=== PATIENT | female | born 1990 | race Caucasian/White ===

== ENCOUNTER 2019-12-17 07:08 | Inpatient (IN) | payer MEDICAID ==
[~2019-12-17 07:08] MED LIST: Lidocaine 1.5% with EPINEPHrine 1:200,000 5 ML Amp ONE
[2019-12-17] MEDS ORDERED: Acetaminophen 325 MG Tab PO PRN ×2 (08:13→20:41)
[2019-12-17] MEDS ORDERED: Nalbuphine 10 MG/ML Syringe IVPUSH PRN (08:13)
[2019-12-17] MEDS ORDERED: Sodium Chloride 0.9% 10 ML Syringe FLUSH PRN (08:13)
[2019-12-17] MEDS ORDERED: Ondansetron 4 MG/2 ML SDV IVPUSH PRN (08:13)
[2019-12-17] MEDS ORDERED: Oxytocin/Lactated Ringers 10 UNIT/1,000 ML BAG IV SCH ×2 (08:15→19:00)
--- NOTE | 2019-12-17 08:15 | PCM.LDHP ---
L&D History of Present Illness - General Date of Service: 12/17/19 Admit Problem/Dx: Patient Status Order with Admit Dx/Problem 12/17/19 07:21 Patient Status [ADT] Routine Admission Diagnosis/Problem Admission Diagnosis/Problem Term Source of Information: Patient History Limitations: Reports: No Limitations - History of Present Illness Introduction:: Patient is a 29 y/o at 38 1/7 wks who presents for concerns of contractions/labor. Started early this AM. 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 (Approximate): Hematologic History: Reports: Blood Transfusion(s) (2014 - hemorrhage requiring transfusion) - Past Surgical History HEENT Surgical History: Reports: Oral Surgery (tooth extraction) Social & Family History - Tobacco Use Smoking Status *Q: Current Every Day Smoker - Alcohol Use Alcohol Use History: No - Recreational Drug Use Recreational Drug Use: No H&P Review of Systems - Review of Systems: Review Of Systems: See Below General: Reports: No Symptoms Pulmonary: Reports: No Symptoms Cardiovascular: Reports: No Symptoms Gastrointestinal: Reports: Abdominal Pain Genitourinary: Reports: No Symptoms Musculoskeletal: Reports: Back Pain Skin: Reports: No Symptoms Psychiatric: Reports: No Symptoms Neurological: Reports: No Symptoms L&D Exam - Exam Exam: See Below - OB Specific Contraction Intensity: Moderate Movement: Active Heart Tones: Present Heart Tones per Min: 140 Heart Rate (FHR) Variability: Moderate (6-25 bmp) Presentation: Vertex - Araiza Score Araiza Score Cervix Position: Midposition Araiza Score Consistency: Soft Araiza Score Effacement: 51-70% Araiza Score Dilation: 3-4 cm Araiza Score 's Station: -2 Araiza Score Total: 8 - Exam General: Alert, Oriented, Cooperative Lungs: Clear to Auscultation, Normal Respiratory Effort Cardiovascular: Regular Rate, Regular Rhythm GI/Abdominal Exam: Soft, Non-Tender Genitourinary: Normal external exam Extremities: Normal Inspection Skin: Warm, Dry, Intact - Problem List (1) 38 weeks gestation of SNOMED Code(s): 41788052 ICD Code: Z3A.38 - 38 WEEKS GESTATION OF Status: Acute Current Visit: Yes (2) GBS (group B Streptococcus carrier), +RV culture, currently SNOMED Code(s): 1209791269417, 829015443, 7950125730680 ICD Code: O99.820 - STREPTOCOCCUS B CARRIER STATE COMPLICATING Status: Acute Current Visit: Yes (3) Insufficient care SNOMED Code(s): 5671659615755 ICD Code: O09.30 - SUPRVSN OF PREG W INSUFFICIENT ANTENAT CARE, UNSP TRIMESTER Status: Acute Current Visit: Yes Qualifiers: Trimester: third trimester Qualified Code(s): O09.33 - Supervision of with insufficient care, third trimester Problem List Initiated/Reviewed/Updated: Yes Orders Last 24hrs: Active Orders 24 hr Category Date Time Status Patient Status [ADT] Routine ADT 12/17/19 07:21 Active Activity as Tolerated [RC] PFP Care 12/17/19 08:14 Ordered Communication Order [RC] ASDIRECTED Care 12/17/19 08:14 Ordered Heart Tones [RC] ASDIRECTED Care 12/17/19 08:14 Ordered Non Stress Test [RC] PER UNIT ROUTINE Care 12/17/19 07:21 Active Non Stress Test [RC] PER UNIT ROUTINE Care 12/17/19 08:14 Ordered Notify Provider [RC] PRN Care 12/17/19 08:14 Ordered Peripheral IV Care [RC] . DIRECTED Care 12/17/19 08:14 Ordered Vital Signs [RC] PER UNIT ROUTINE Care 12/17/19 07:21 Active Vital Signs [RC] PER UNIT ROUTINE Care 12/17/19 08:14 Ordered Regular Diet [DIET] Diet 12/17/19 Breakfast Active Regular Diet [DIET] Diet 12/17/19 Breakfast Ordered CBC W/O DIFF,HEMOGRAM [HEME] Routine Lab 12/17/19 08:13 Ordered DRUG SCREEN, URINE [URCHEM] Stat Lab 12/17/19 07:21 Ordered RAPID PLASMA REAGIN,RPR [CHEM] Routine Lab 12/17/19 08:14 Ordered TYPE AND SCREEN [BBK] Routine Lab 12/17/19 08:13 Ordered UA W/MICROSCOPIC [URIN] Stat Lab 12/17/19 07:21 Ordered Acetaminophen [Tylenol] Med 12/17/19 08:13 Ordered 650 mg PO Q4H PRN Lactated Ringers [Ringers, Lactated] 1,000 ml Med 12/17/19 08:15 Ordered IV ASDIRECTED Nalbuphine [Nubain] Med 12/17/19 08:13 Ordered 10 mg IVPUSH Q2H PRN Ondansetron [Zofran] Med 12/17/19 08:13 Ordered 4 mg IVPUSH Q4H PRN Oxytocin/Lactated Ringers [Pitocin in LR 10 Units/1,000 Med 12/17/19 08:15 Ordered ML] 10 unit in 1,000 ml IV .CONTINUOUS Sodium Chloride 0.9% [Saline Flush] Med 12/17/19 08:13 Ordered 10 ml FLUSH ASDIRECTED PRN ceFAZolin [Ancef] 1 gm Med 12/17/19 14:00 Ordered Premix Bag 1 bag IV Q8HR ceFAZolin [Ancef] 2 gm Med 12/17/19 08:13 Ordered Premix Bag 1 bag IV ONETIME Electronic Heart Tones Ext w TOCO [WOMSER] Oth 12/17/19 08:14 Ordered Routine Electronic Heart Tones Internal [WOMSER] Per Unit Oth 12/17/19 08:14 Ordered Routine Peripheral IV Insertion Adult [OM.PC] Routine Oth 12/17/19 08:14 Ordered Resuscitation Status Routine Resus Stat 12/17/19 07:21 Ordered Assessment/Plan Comment:: * Labs * GBS positive, Ancef in labor * pain control per patient preference * Anticipate
[2019-12-17] MEDS ORDERED: ceFAZolin 2 GM in Premix Bag 1 BAG IV ONE (09:00)
[2019-12-17] MEDS: Lactated Ringers 1,000 ML IV SCH ×2 (09:12→11:40)
[2019-12-17] MEDS ORDERED: ePHEDrine 50 MG/ML SDV IVPUSH PRN (09:41)
[2019-12-17] MEDS ORDERED: fentaNYL 100 MCG/2 ML SDV EPIDUR PRN (09:41)
[2019-12-17] MEDS ORDERED: Bupivacaine/fentaNYL/NS 100 ML Bag EPIDUR PRN (09:41)
[2019-12-17] MEDS ORDERED: diphenhydrAMINE 50 MG/ML SDV IVPUSH PRN (09:41)
--- NOTE | 2019-12-17 09:41 | PCM.SN ---
- Free Text/Narrative Note: Called for IV placement. 20 gauge IV inserted in the right upper arm with one attempt per standard aseptic technique. Good blood return, flushes well, secured with transparent dressing and tape.
--- NOTE | 2019-12-17 09:43 | PCM.PREANE ---
Preanesthetic Assessment - Procedure Proposed Procedure: Epidural - Anesthesia/Transfusion/Family Hx Anesthesia History: No Prior Anesthesia Type of Anesthesia Reaction: Excessive Nausea/Vomiting Family History of Anesthesia Reaction: No - Review of Systems General: No Symptoms Pulmonary: Other (Smoker a couple a day. ) Cardiovascular: No Symptoms Gastrointestinal: No Symptoms, Other Neurological: No Symptoms Other: Reports: None - Physical Assessment ASA Class: 2 Mental Status: Alert & Oriented x3 Airway Class: Mallampati = 2 Dentition: Reports: Caries ROM/Head Extension: Full Lungs: Clear to Auscultation, Normal Respiratory Effort Cardiovascular: Regular Rate, Regular Rhythm - Lab Values: Laboratory Last Values WBC 12.30 K/mm3 (3.98-10.04) H 12/17/19 08:51 RBC 3.77 M/mm3 (3.98-5.22) L 12/17/19 08:51 Hgb 9.8 gm/dl (11.2-15.7) L 12/17/19 08:51 Hct 31.7 % (34.1-44.9) L 12/17/19 08:51 MCV 84.1 fl (79.4-94.8) 12/17/19 08:51 MCH 26.0 pg (25.6-32.2) 12/17/19 08:51 MCHC 30.9 g/dl (32.2-35.5) L 12/17/19 08:51 RDW Std Deviation 46.6 fL (36.4-46.3) H 12/17/19 08:51 Plt Count 258 K/mm3 (182-369) 12/17/19 08:51 MPV 11.7 fl (9.4-12.3) 12/17/19 08:51 - Allergies Allergies/Adverse Reactions: Allergies Allergy/AdvReac Type Severity Reaction Status Date / Time amoxicillin Allergy Itching Verified 12/17/19 08:58 - Acknowledgements Anesthesia Type Planned: Epidural Pt an Appropriate Candidate for the Planned Anesthesia: Yes Alternatives and Risks of Anesthesia Discussed w Pt/Guardian: Yes Pt/Guardian Understands and Agrees with Anesthesia Plan: Yes 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: Hematologic History: Reports: Blood Transfusion(s) (2014 - hemorrhage requiring transfusion) - Past Surgical History HEENT Surgical History: Reports: Oral Surgery (tooth extraction) - SUBSTANCE USE Smoking Status *Q: Current Every Day Smoker Recreational Drug Use History: No - CURRENT (IN HOUSE) MEDS Current Meds: Current Medications Acetaminophen (Tylenol) 650 mg PO Q4H PRN PRN Reason: Pain (Mild 1-3) and fever Diphenhydramine HCl (Benadryl) 25 mg IVPUSH Q6H PRN PRN Reason: pruritis Ephedrine Sulfate (Ephedrine Sulfate) 5 mg IVPUSH ASDIRECTED PRN PRN Reason: Hypotension Fentanyl (Sublimaze) 100 mcg EPIDUR Q3H PRN PRN Reason: Pain Fentanyl/Bupivacaine HCl (Fentanyl/Bupivacaine/Ns 2 Mcg-0.125% 100 Ml) 100 ml EPIDUR ASDIRECTED PRN PRN Reason: Pain Lactated Ringer's (Ringers, Lactated) 1,000 mls @ 100 mls/hr IV ASDIRECTED KAYLA Last Admin: 12/17/19 09:12 Dose: 100 mls/hr Oxytocin/Lactated Ringer's (Pitocin In Lr 10 Units/1,000 Ml) 10 unit in 1,000 mls @ 500 mls/hr IV .CONTINUOUS KAYLA Cefazolin Sodium/Dextrose 1 gm (/ Premix) 50 mls @ 100 mls/hr IV Q8H KAYLA Nalbuphine HCl (Nubain) 10 mg IVPUSH Q2H PRN PRN Reason: Pain Ondansetron HCl (Zofran) 4 mg IVPUSH Q4H PRN PRN Reason: Nausea/Vomiting Sodium Chloride (Saline Flush) 10 ml FLUSH ASDIRECTED PRN PRN Reason: Keep Vein Open Discontinued Medications Cefazolin Sodium/Dextrose 2 gm (/ Premix) 50 mls @ 100 mls/hr IV ONETIME ONE Stop: 12/17/19 09:29 Last Admin: 12/17/19 09:14 Dose: 100 mls/hr
--- NOTE | 2019-12-17 12:22 | PCM.PNLD ---
Labor Progress Note - VS & Meds Active Medications: Current Medications Acetaminophen (Tylenol) 650 mg PO Q4H PRN PRN Reason: Pain (Mild 1-3) and fever Diphenhydramine HCl (Benadryl) 25 mg IVPUSH Q6H PRN PRN Reason: pruritis Ephedrine Sulfate (Ephedrine Sulfate) 5 mg IVPUSH ASDIRECTED PRN PRN Reason: Hypotension Fentanyl (Sublimaze) 100 mcg EPIDUR Q3H PRN PRN Reason: Pain Last Admin: 12/17/19 11:39 Dose: 100 mcg Fentanyl/Bupivacaine HCl (Fentanyl/Bupivacaine/Ns 2 Mcg-0.125% 100 Ml) 100 ml EPIDUR ASDIRECTED PRN PRN Reason: Pain Last Admin: 12/17/19 11:39 Dose: 100 ml Lactated Ringer's (Ringers, Lactated) 1,000 mls @ 100 mls/hr IV ASDIRECTED KAYLA Last Admin: 12/17/19 11:40 Dose: 100 mls/hr Oxytocin/Lactated Ringer's (Pitocin In Lr 10 Units/1,000 Ml) 10 unit in 1,000 mls @ 500 mls/hr IV .CONTINUOUS KAYLA Cefazolin Sodium/Dextrose 1 gm (/ Premix) 50 mls @ 100 mls/hr IV Q8H KAYLA Nalbuphine HCl (Nubain) 10 mg IVPUSH Q2H PRN PRN Reason: Pain Ondansetron HCl (Zofran) 4 mg IVPUSH Q4H PRN PRN Reason: Nausea/Vomiting Sodium Chloride (Saline Flush) 10 ml FLUSH ASDIRECTED PRN PRN Reason: Keep Vein Open Discontinued Medications Cefazolin Sodium/Dextrose 2 gm (/ Premix) 50 mls @ 100 mls/hr IV ONETIME ONE Stop: 12/17/19 09:29 Last Admin: 12/17/19 09:14 Dose: 100 mls/hr - Uterine Contractions Uterine Monitoring Mode: External Boykin Contraction Intensity: Moderate Uterine Resting Tone: Soft - Monitoring Monitor Mode: External Ultrasound Heart Rate (FHR) Baseline: 135 Heart Rate (FHR) Variability: Moderate (6-25 bmp) Accelerations: Present, 15x15 Decelerations: None Strip Review: Category I - Vaginal Exam Dilation (cm): 4 Effacement (Percent): 50 Station: -2 Cervical Position: Midposition - Labor Progress (Free Text) Labor Progress: Doing well. Comfortable with epidural in place. AROM done with release of scant amount of meconium stained fluid
[2019-12-17] MEDS ORDERED: ceFAZolin 1 GM in Premix Bag 1 BAG IV SCH (17:00)
--- NOTE | 2019-12-17 20:03 | PCM.DEL ---
L & D Note - General Info Date of Service: 12/17/19 - Delivery Note Labor: Augmented by ARM Delivery Outcome: Livebirth Delivery Method: Spontaneous Vaginal Delivery-Single Infant Delivery Mode: Spontaneous Presentation: Right Occiput Anterior (LIGIA) Nuchal Cord: None Anesthesia Type: Epidural Amniotic Fluid Description: Meconium Stained Episiotomy Type: None Laceration: None Placenta: Intact, Spontaneous Cord: 3 Vessels Estimated Blood Loss: 200 Resuscitation Needed: Yes Vestal: Bulb Syringe, Stimulated, Warmed, [place] Used, Warmer Used Delivery Comments (Free Text/Narrative):: Patient found to be complete and began pushing. With maternal pushing effort head delivered from LIGIA presentation. No nuchal cord present. With gentle downward traction shoulders and body delivered. placed on maternal abdomen . Cord clamped and cut with long segment remaining on baby to allow collection of cord segment by RN team. Cord blood collected. Placenta allowed time to separate and expelled intact. Inspection of the perineum showed no lacerations - General Info Date of Service: 12/17/19 - Patient Data Vitals - Most Recent: Last Vital Signs Temp 36.9 C 12/17/19 07:45 Pulse 111 H 12/17/19 07:45 Resp 16 12/17/19 07:45 BP 128/67 12/17/19 07:45 Pulse Ox Weight - Most Recent: 72.121 kg I&O - Last 24 Hours: Intake & Output 12/17/19 12/17/19 12/17/19 06:59 14:59 22:59 Intake Total 2180 Balance 2180 Lab Results Last 24 Hours: Laboratory Results - last 24 hr 12/17/19 12/17/19 12/17/19 Range/Units 08:51 08:51 08:51 WBC 12.30 H (3.98-10.04) K/mm3 RBC 3.77 L (3.98-5.22) M/mm3 Hgb 9.8 L (11.2-15.7) gm/dl Hct 31.7 L (34.1-44.9) % MCV 84.1 (79.4-94.8) fl MCH 26.0 (25.6-32.2) pg MCHC 30.9 L (32.2-35.5) g/dl RDW Std Deviation 46.6 H (36.4-46.3) fL Plt Count 258 (182-369) K/mm3 MPV 11.7 (9.4-12.3) fl Urine Color (Yellow) Urine Appearance (Clear) Urine pH (5.0-8.0) Ur Specific Pinch (1.005-1.030) Urine Protein (Negative) Urine Glucose (UA) (Negative) Urine Ketones (Negative) Urine Occult Blood (Negative) Urine Nitrite (Negative) Urine Bilirubin (Negative) Urine Urobilinogen (0.2-1.0) Ur Leukocyte Esterase (Negative) Urine RBC (0-5) /hpf Urine WBC (0-5) /hpf Ur Squamous Epith Cells (0-5) /hpf Urine Bacteria (FEW) /hpf Urine Mucus (FEW) /hpf Urine Opiates Screen (DWQCPF=992) Ur Buprenorphine Scrn (CUTOFF=10) Ur Oxycodone Screen (GBI0KY=777) Urine Methadone Screen (CEGOFO=534) Ur Propoxyphene Screen (DLJLMK=356) Ur Barbiturates Screen (ABFIQJ=973) Ur Tricyclics Screen (YRWIKI=294) Ur Phencyclidine Scrn (CUTOFF=25) Ur Amphetamine Screen (XVGUUE=312) U Methamphetamines Scrn (JHCVFM=016) U Benzodiazepines Scrn (JWYYKP=820) U Cocaine Metab Screen (SZDKDK=211) U Marijuana (THC) Screen (CUTOFF=50) RPR Non-reactive (NONREACTIVE) Blood Type A POSITIVE Gel Antibody Screen Negative 12/17/19 12/17/19 Range/Units 09:00 09:00 WBC (3.98-10.04) K/mm3 RBC (3.98-5.22) M/mm3 Hgb (11.2-15.7) gm/dl Hct (34.1-44.9) % MCV (79.4-94.8) fl MCH (25.6-32.2) pg MCHC (32.2-35.5) g/dl RDW Std Deviation (36.4-46.3) fL Plt Count (182-369) K/mm3 MPV (9.4-12.3) fl Urine Color Yellow (Yellow) Urine Appearance Clear (Clear) Urine pH 6.5 (5.0-8.0) Ur Specific Pinch > or = 1.030 (1.005-1.030) Urine Protein 1+ H (Negative) Urine Glucose (UA) Negative (Negative) Urine Ketones Negative (Negative) Urine Occult Blood Negative (Negative) Urine Nitrite Negative (Negative) Urine Bilirubin Negative (Negative) Urine Urobilinogen 1.0 (0.2-1.0) Ur Leukocyte Esterase Negative (Negative) Urine RBC 0-5 (0-5) /hpf Urine WBC 0-5 (0-5) /hpf Ur Squamous Epith Cells 10-20 H (0-5) /hpf Urine Bacteria Few (FEW) /hpf Urine Mucus Few (FEW) /hpf Urine Opiates Screen Negative (AXLOGX=555) Ur Buprenorphine Scrn Negative (CUTOFF=10) Ur Oxycodone Screen Negative (PLP6RO=021) Urine Methadone Screen Negative (AMNWOD=575) Ur Propoxyphene Screen Negative (GUFRVC=741) Ur Barbiturates Screen Negative (GATJLI=388) Ur Tricyclics Screen Negative (QBQBCI=944) Ur Phencyclidine Scrn Negative (CUTOFF=25) Ur Amphetamine Screen Negative (FMYUYY=919) U Methamphetamines Scrn Presumptive positive H (OXRQNR=376) U Benzodiazepines Scrn Negative (SXSSPN=904) U Cocaine Metab Screen Negative (UGBAPT=179) U Marijuana (THC) Screen Negative (CUTOFF=50) RPR (NONREACTIVE) Blood Type Gel Antibody Screen - Problem List & Annotations (1) 38 weeks gestation of SNOMED Code(s): 62595552 Code(s): Z3A.38 - 38 WEEKS GESTATION OF Status: Acute Current Visit: Yes (2) GBS (group B Streptococcus carrier), +RV culture, currently SNOMED Code(s): 6736598017609, 937254397, 1610278820254 Code(s): O99.820 - STREPTOCOCCUS B CARRIER STATE COMPLICATING Status: Acute Current Visit: Yes (3) Insufficient care SNOMED Code(s): 6339053109682 Code(s): O09.30 - SUPRVSN OF PREG W INSUFFICIENT ANTENAT CARE, UNSP TRIMESTER Status: Acute Current Visit: Yes Qualifiers: Trimester: third trimester Qualified Code(s): O09.33 - Supervision of with insufficient care, third trimester (4) Vaginal delivery SNOMED Code(s): 174024311 Code(s): O80 - ENCOUNTER FOR FULL-TERM UNCOMPLICATED DELIVERY Status: Acute Current Visit: Yes - Problem List Review Problem List Initiated/Reviewed/Updated: Yes - My Orders Last 24 Hours: My Active Orders 12/17/19 07:21 Vital Signs [RC] PER UNIT ROUTINE Resuscitation Status Routine 12/17/19 08:13 Acetaminophen [Tylenol] 650 mg PO Q4H PRN Nalbuphine [Nubain] 10 mg IVPUSH Q2H PRN Ondansetron [Zofran] 4 mg IVPUSH Q4H PRN Sodium Chloride 0.9% [Saline Flush] 10 ml FLUSH ASDIRECTED PRN 12/17/19 08:14 Activity as Tolerated [RC] PFP Communication Order [RC] ASDIRECTED Heart Tones [RC] ASDIRECTED Non Stress Test [RC] PER UNIT ROUTINE Notify Provider [RC] PRN Peripheral IV Care [RC] . DIRECTED Electronic Heart Tones Ext w TOCO [WOMSER] Routine Electronic Heart Tones Internal [WOMSER] Per Unit Routine Peripheral IV Insertion Adult [OM.PC] Routine 12/17/19 08:15 Lactated Ringers [Ringers, Lactated] 1,000 ml IV ASDIRECTED Oxytocin/Lactated Ringers [Pitocin in LR 10 Units/1,000 ML] 10 unit in 1,000 ml IV .CONTINUOUS 12/17/19 09:00 AMPHET/METH EXT CONF (GCMS) Routine 12/17/19 10:10 Admission Status [Patient Status] [ADT] Routine 12/17/19 17:00 ceFAZolin [Ancef] 1 gm Premix Bag 1 bag IV Q8H 12/17/19 19:00 Oxytocin/Lactated Ringers [Pitocin in LR 10 Units/1,000 ML] 10 unit in 1,000 ml IV TITRATE 12/17/19 Breakfast Regular Diet [DIET] Regular Diet [DIET] - Assessment Assessment:: PPD#0 - Plan Plan:: * Routine cares * Breast/bottle feeding * Discharge home in 1 day
[2019-12-17] MEDS ORDERED: Witch Hazel Medicated Pads 40/Jar TOP PRN (20:41)
[2019-12-17] MEDS ORDERED: Benzocaine/Menthol 20%-0.5% Spray 56 GM Canister TOP PRN (20:41)
[2019-12-17] MEDS ORDERED: Docusate Sodium 100 MG Cap PO PRN (20:41)
[2019-12-17] MEDS: Ibuprofen 600 MG Tab PO PRN (21:42)
[2019-12-18] MEDS: Ibuprofen 600 MG Tab PO PRN ×3 (05:06→17:09)
--- NOTE | 2019-12-18 07:10 | PCM.DCSUM1 ---
Discharge Summary - Discharge Data Discharge Date: 12/18/19 Discharge Disposition: Home, Self-Care 01 Condition: Good - Referral to Home Health Primary Care Physician: Amairani Flor MD - Discharge Diagnosis/Problem(s) (1) 38 weeks gestation of SNOMED Code(s): 65868744 ICD Code: Z3A.38 - 38 WEEKS GESTATION OF Status: Acute Current Visit: Yes (2) GBS (group B Streptococcus carrier), +RV culture, currently SNOMED Code(s): 9704132477753, 700091929, 6464001634647 ICD Code: O99.820 - STREPTOCOCCUS B CARRIER STATE COMPLICATING Status: Acute Current Visit: Yes (3) Insufficient care SNOMED Code(s): 2501904250698 ICD Code: O09.30 - SUPRVSN OF PREG W INSUFFICIENT ANTENAT CARE, UNSP TRIMESTER Status: Acute Current Visit: Yes Qualifiers: Trimester: third trimester Qualified Code(s): O09.33 - Supervision of with insufficient care, third trimester (4) Vaginal delivery SNOMED Code(s): 842634397 ICD Code: O80 - ENCOUNTER FOR FULL-TERM UNCOMPLICATED DELIVERY Status: Acute Current Visit: Yes - Patient Summary/Data Complications: None Consults: None Recommended Follow-up Testing/Procedures: Follow up in 3 weeks for check Hospital Course: 29 y/o at 38 1/7 wks who presented in labor. Progressed well. Underwent an uncomplicated . See delivery note. was discharged home on PPD#1 - Patient Instructions Diet: Regular Diet as Tolerated Activity: As Tolerated Activity, Other: Pelvic rest for 6 weeks Driving: May Drive Today Showering/Bathing: May Shower Showering/Bathing, Other: May bathe Notify Provider of: Fever, Increased Pain, Swelling and Redness, Drainage, Nausea and/or Vomiting - Discharge Plan *PRESCRIPTION DRUG MONITORING PROGRAM REVIEWED*: No *COPY OF PRESCRIPTION DRUG MONITORING REPORT IN PATIENT COMPA: No Home Medications: Home Meds Pnv #38/Iron Fum/Folate/Dha [Prenate Dha Softgel] 1 each PO DAILY 12/17/19 [ History] Docusate Sodium [Colace] 100 mg PO BID PRN cap 12/18/19 [Rx] Ibuprofen [Motrin] 600 mg PO Q6H PRN tablet 12/18/19 [Rx] Patient Handouts: Steps to Quit Smoking Referrals: Amairani Flor MD [Primary Care Provider] - (3 weeks for check ( telehealth)) - Discharge Summary/Plan Comment DC Time >30 min.: No - Patient Data Vitals - Most Recent: Last Vital Signs Temp 36.7 C 12/18/19 03:48 Pulse 97 12/18/19 03:48 Resp 14 12/18/19 03:48 BP 124/84 12/18/19 03:48 Pulse Ox 97 12/18/19 03:48 Weight - Most Recent: 72.121 kg I&O - Last 24 hours: Intake & Output 12/17/19 12/18/19 12/18/19 22:59 06:59 14:59 Intake Total 2180 Output Total 250 Balance 1930 Lab Results - Last 24 hrs: Laboratory Results - last 24 hr 12/17/19 12/17/19 12/17/19 Range/Units 08:51 08:51 08:51 WBC 12.30 H (3.98-10.04) K/mm3 RBC 3.77 L (3.98-5.22) M/mm3 Hgb 9.8 L (11.2-15.7) gm/dl Hct 31.7 L (34.1-44.9) % MCV 84.1 (79.4-94.8) fl MCH 26.0 (25.6-32.2) pg MCHC 30.9 L (32.2-35.5) g/dl RDW Std Deviation 46.6 H (36.4-46.3) fL Plt Count 258 (182-369) K/mm3 MPV 11.7 (9.4-12.3) fl Urine Color (Yellow) Urine Appearance (Clear) Urine pH (5.0-8.0) Ur Specific [place] (1.005-1.030) Urine Protein (Negative) Urine Glucose (UA) (Negative) Urine Ketones (Negative) Urine Occult Blood (Negative) Urine Nitrite (Negative) Urine Bilirubin (Negative) Urine Urobilinogen (0.2-1.0) Ur Leukocyte Esterase (Negative) Urine RBC (0-5) /hpf Urine WBC (0-5) /hpf Ur Squamous Epith Cells (0-5) /hpf Urine Bacteria (FEW) /hpf Urine Mucus (FEW) /hpf Urine Opiates Screen (ELOIYM=828) Ur Buprenorphine Scrn (CUTOFF=10) Ur Oxycodone Screen (EJA0DW=901) Urine Methadone Screen (DGPOUG=892) Ur Propoxyphene Screen (TJUJAB=379) Ur Barbiturates Screen (YJWCQI=184) Ur Tricyclics Screen (RFLTCF=443) Ur Phencyclidine Scrn (CUTOFF=25) Ur Amphetamine Screen (ZUCWMK=652) U Methamphetamines Scrn (LUNSWL=702) U Benzodiazepines Scrn (EHCRJL=094) U Cocaine Metab Screen (MHZWNH=406) U Marijuana (THC) Screen (CUTOFF=50) RPR Non-reactive (NONREACTIVE) Blood Type A POSITIVE Gel Antibody Screen Negative 12/17/19 12/17/19 Range/Units 09:00 09:00 WBC (3.98-10.04) K/mm3 RBC (3.98-5.22) M/mm3 Hgb (11.2-15.7) gm/dl Hct (34.1-44.9) % MCV (79.4-94.8) fl MCH (25.6-32.2) pg MCHC (32.2-35.5) g/dl RDW Std Deviation (36.4-46.3) fL Plt Count (182-369) K/mm3 MPV (9.4-12.3) fl Urine Color Yellow (Yellow) Urine Appearance Clear (Clear) Urine pH 6.5 (5.0-8.0) Ur Specific [place] > or = 1.030 (1.005-1.030) Urine Protein 1+ H (Negative) Urine Glucose (UA) Negative (Negative) Urine Ketones Negative (Negative) Urine Occult Blood Negative (Negative) Urine Nitrite Negative (Negative) Urine Bilirubin Negative (Negative) Urine Urobilinogen 1.0 (0.2-1.0) Ur Leukocyte Esterase Negative (Negative) Urine RBC 0-5 (0-5) /hpf Urine WBC 0-5 (0-5) /hpf Ur Squamous Epith Cells 10-20 H (0-5) /hpf Urine Bacteria Few (FEW) /hpf Urine Mucus Few (FEW) /hpf Urine Opiates Screen Negative (ESPMSI=090) Ur Buprenorphine Scrn Negative (CUTOFF=10) Ur Oxycodone Screen Negative (IGK8RO=104) Urine Methadone Screen Negative (DCZLES=714) Ur Propoxyphene Screen Negative (XBWAPN=863) Ur Barbiturates Screen Negative (QEUSNN=744) Ur Tricyclics Screen Negative (SPPMUB=748) Ur Phencyclidine Scrn Negative (CUTOFF=25) Ur Amphetamine Screen Negative (HGEALL=755) U Methamphetamines Scrn Presumptive positive H (FMEACQ=404) U Benzodiazepines Scrn Negative (XCPRKV=286) U Cocaine Metab Screen Negative (YZHWMC=943) U Marijuana (THC) Screen Negative (CUTOFF=50) RPR (NONREACTIVE) Blood Type Gel Antibody Screen Med Orders - Current: Current Medications Acetaminophen (Tylenol) 650 mg PO Q4H PRN PRN Reason: mild pain or fever Benzocaine/Menthol (Dermoplast Pain Relief [place]) 0 gm TOP ASDIRECTED PRN PRN Reason: Perineal Comfort Measure Last Admin: 12/17/19 21:41 Dose: 1 canister Docusate Sodium (Colace) 100 mg PO BID PRN PRN Reason: Constipation Last Admin: 12/17/19 21:41 Dose: 100 mg Ibuprofen (Motrin) 600 mg PO Q6H PRN PRN Reason: Mild pain or fever Last Admin: 12/18/19 05:06 Dose: 600 mg Witch Cee (Tucks) 1 pad TOP ASDIRECTED PRN PRN Reason: Perineal Comfort Measure Last Admin: 12/17/19 21:41 Dose: 1 canister Discontinued Medications Acetaminophen (Tylenol) 650 mg PO Q4H PRN PRN Reason: Pain (Mild 1-3) and fever Diphenhydramine HCl (Benadryl) 25 mg IVPUSH Q6H PRN PRN Reason: pruritis Last Admin: 12/17/19 16:18 Dose: 25 mg Ephedrine Sulfate (Ephedrine Sulfate) 5 mg IVPUSH ASDIRECTED PRN PRN Reason: Hypotension Fentanyl (Sublimaze) 100 mcg EPIDUR Q3H PRN PRN Reason: Pain Last Admin: 12/17/19 11:39 Dose: 100 mcg Fentanyl/Bupivacaine HCl (Fentanyl/Bupivacaine/Ns 2 Mcg-0.125% 100 Ml) 100 ml EPIDUR ASDIRECTED PRN PRN Reason: Pain Last Admin: 12/17/19 11:39 Dose: 100 ml Cefazolin Sodium/Dextrose 2 gm (/ Premix) 50 mls @ 100 mls/hr IV ONETIME ONE Stop: 12/17/19 09:29 Last Admin: 12/17/19 09:14 Dose: 100 mls/hr Lactated Ringer's (Ringers, Lactated) 1,000 mls @ 100 mls/hr IV ASDIRECTED KAYLA Last Admin: 12/17/19 11:40 Dose: 100 mls/hr Oxytocin/Lactated Ringer's (Pitocin In Lr 10 Units/1,000 Ml) 10 unit in 1,000 mls @ 500 mls/hr IV .CONTINUOUS KAYLA Cefazolin Sodium/Dextrose 1 gm (/ Premix) 50 mls @ 100 mls/hr IV Q8H KAYLA Last Admin: 12/17/19 17:08 Dose: 100 mls/hr Oxytocin/Lactated Ringer's (Pitocin In Lr 10 Units/1,000 Ml) 10 unit in 1,000 mls @ 12 mls/hr IV TITRATE KAYLA; Protocol Last Admin: 12/17/19 18:48 Dose: 2 munits/min, 12 mls/hr Nalbuphine HCl (Nubain) 10 mg IVPUSH Q2H PRN PRN Reason: Pain Ondansetron HCl (Zofran) 4 mg IVPUSH Q4H PRN PRN Reason: Nausea/Vomiting Sodium Chloride (Saline Flush) 10 ml FLUSH ASDIRECTED PRN PRN Reason: Keep Vein Open
--- NOTE | 2019-12-18 07:10 | PCM.PNPP ---
- General Info Date of Service: 12/18/19 Functional Status: Reports: Pain Controlled, Tolerating Diet, Ambulating, Urinating - Review of Systems General: Reports: No Symptoms Pulmonary: Reports: No Symptoms Cardiovascular: Reports: No Symptoms Gastrointestinal: Reports: No Symptoms Genitourinary: Reports: No Symptoms Musculoskeletal: Reports: No Symptoms Neurological: Reports: No Symptoms - Patient Data Vital Signs - Most Recent: Last Vital Signs Temp 36.7 C 12/18/19 03:48 Pulse 97 12/18/19 03:48 Resp 14 12/18/19 03:48 BP 124/84 12/18/19 03:48 Pulse Ox 97 12/18/19 03:48 Weight - Most Recent: 72.121 kg I&O - Last 24 Hours: Intake & Output 12/17/19 12/18/19 12/18/19 22:59 06:59 14:59 Intake Total 2180 Output Total 250 Balance 1930 Lab Results - Last 24 Hours: Laboratory Results - last 24 hr 12/17/19 12/17/19 12/17/19 Range/Units 08:51 08:51 08:51 WBC 12.30 H (3.98-10.04) K/mm3 RBC 3.77 L (3.98-5.22) M/mm3 Hgb 9.8 L (11.2-15.7) gm/dl Hct 31.7 L (34.1-44.9) % MCV 84.1 (79.4-94.8) fl MCH 26.0 (25.6-32.2) pg MCHC 30.9 L (32.2-35.5) g/dl RDW Std Deviation 46.6 H (36.4-46.3) fL Plt Count 258 (182-369) K/mm3 MPV 11.7 (9.4-12.3) fl Urine Color (Yellow) Urine Appearance (Clear) Urine pH (5.0-8.0) Ur Specific [place] (1.005-1.030) Urine Protein (Negative) Urine Glucose (UA) (Negative) Urine Ketones (Negative) Urine Occult Blood (Negative) Urine Nitrite (Negative) Urine Bilirubin (Negative) Urine Urobilinogen (0.2-1.0) Ur Leukocyte Esterase (Negative) Urine RBC (0-5) /hpf Urine WBC (0-5) /hpf Ur Squamous Epith Cells (0-5) /hpf Urine Bacteria (FEW) /hpf Urine Mucus (FEW) /hpf Urine Opiates Screen (MPPKCV=595) Ur Buprenorphine Scrn (CUTOFF=10) Ur Oxycodone Screen (TZG3QD=562) Urine Methadone Screen (UVRJTU=077) Ur Propoxyphene Screen (SJJFWO=909) Ur Barbiturates Screen (CJTQNU=610) Ur Tricyclics Screen (DGLQKI=652) Ur Phencyclidine Scrn (CUTOFF=25) Ur Amphetamine Screen (RQOHED=469) U Methamphetamines Scrn (RUTYGF=192) U Benzodiazepines Scrn (SDOHGN=594) U Cocaine Metab Screen (LMSBPQ=420) U Marijuana (THC) Screen (CUTOFF=50) RPR Non-reactive (NONREACTIVE) Blood Type A POSITIVE Gel Antibody Screen Negative 12/17/19 12/17/19 Range/Units 09:00 09:00 WBC (3.98-10.04) K/mm3 RBC (3.98-5.22) M/mm3 Hgb (11.2-15.7) gm/dl Hct (34.1-44.9) % MCV (79.4-94.8) fl MCH (25.6-32.2) pg MCHC (32.2-35.5) g/dl RDW Std Deviation (36.4-46.3) fL Plt Count (182-369) K/mm3 MPV (9.4-12.3) fl Urine Color Yellow (Yellow) Urine Appearance Clear (Clear) Urine pH 6.5 (5.0-8.0) Ur Specific [place] > or = 1.030 (1.005-1.030) Urine Protein 1+ H (Negative) Urine Glucose (UA) Negative (Negative) Urine Ketones Negative (Negative) Urine Occult Blood Negative (Negative) Urine Nitrite Negative (Negative) Urine Bilirubin Negative (Negative) Urine Urobilinogen 1.0 (0.2-1.0) Ur Leukocyte Esterase Negative (Negative) Urine RBC 0-5 (0-5) /hpf Urine WBC 0-5 (0-5) /hpf Ur Squamous Epith Cells 10-20 H (0-5) /hpf Urine Bacteria Few (FEW) /hpf Urine Mucus Few (FEW) /hpf Urine Opiates Screen Negative (UQXATG=778) Ur Buprenorphine Scrn Negative (CUTOFF=10) Ur Oxycodone Screen Negative (MNP8UN=583) Urine Methadone Screen Negative (SOUAJK=396) Ur Propoxyphene Screen Negative (MKZIDM=561) Ur Barbiturates Screen Negative (DTKFWN=824) Ur Tricyclics Screen Negative (OJUJHD=735) Ur Phencyclidine Scrn Negative (CUTOFF=25) Ur Amphetamine Screen Negative (QWWIUC=670) U Methamphetamines Scrn Presumptive positive H (FYDBMF=227) U Benzodiazepines Scrn Negative (VLGNUF=924) U Cocaine Metab Screen Negative (OENDLT=364) U Marijuana (THC) Screen Negative (CUTOFF=50) RPR (NONREACTIVE) Blood Type Gel Antibody Screen Med Orders - Current: Current Medications Acetaminophen (Tylenol) 650 mg PO Q4H PRN PRN Reason: mild pain or fever Benzocaine/Menthol (Dermoplast Pain Relief [place]) 0 gm TOP ASDIRECTED PRN PRN Reason: Perineal Comfort Measure Last Admin: 12/17/19 21:41 Dose: 1 canister Docusate Sodium (Colace) 100 mg PO BID PRN PRN Reason: Constipation Last Admin: 12/17/19 21:41 Dose: 100 mg Ibuprofen (Motrin) 600 mg PO Q6H PRN PRN Reason: Mild pain or fever Last Admin: 12/18/19 05:06 Dose: 600 mg Witch [place] (Tucks) 1 pad TOP ASDIRECTED PRN PRN Reason: Perineal Comfort Measure Last Admin: 12/17/19 21:41 Dose: 1 canister Discontinued Medications Acetaminophen (Tylenol) 650 mg PO Q4H PRN PRN Reason: Pain (Mild 1-3) and fever Diphenhydramine HCl (Benadryl) 25 mg IVPUSH Q6H PRN PRN Reason: pruritis Last Admin: 12/17/19 16:18 Dose: 25 mg Ephedrine Sulfate (Ephedrine Sulfate) 5 mg IVPUSH ASDIRECTED PRN PRN Reason: Hypotension Fentanyl (Sublimaze) 100 mcg EPIDUR Q3H PRN PRN Reason: Pain Last Admin: 12/17/19 11:39 Dose: 100 mcg Fentanyl/Bupivacaine HCl (Fentanyl/Bupivacaine/Ns 2 Mcg-0.125% 100 Ml) 100 ml EPIDUR ASDIRECTED PRN PRN Reason: Pain Last Admin: 12/17/19 11:39 Dose: 100 ml Cefazolin Sodium/Dextrose 2 gm (/ Premix) 50 mls @ 100 mls/hr IV ONETIME ONE Stop: 12/17/19 09:29 Last Admin: 12/17/19 09:14 Dose: 100 mls/hr Lactated Ringer's (Ringers, Lactated) 1,000 mls @ 100 mls/hr IV ASDIRECTED KAYLA Last Admin: 12/17/19 11:40 Dose: 100 mls/hr Oxytocin/Lactated Ringer's (Pitocin In Lr 10 Units/1,000 Ml) 10 unit in 1,000 mls @ 500 mls/hr IV .CONTINUOUS KAYLA Cefazolin Sodium/Dextrose 1 gm (/ Premix) 50 mls @ 100 mls/hr IV Q8H KAYLA Last Admin: 12/17/19 17:08 Dose: 100 mls/hr Oxytocin/Lactated Ringer's (Pitocin In Lr 10 Units/1,000 Ml) 10 unit in 1,000 mls @ 12 mls/hr IV TITRATE KAYLA; Protocol Last Admin: 12/17/19 18:48 Dose: 2 munits/min, 12 mls/hr Nalbuphine HCl (Nubain) 10 mg IVPUSH Q2H PRN PRN Reason: Pain Ondansetron HCl (Zofran) 4 mg IVPUSH Q4H PRN PRN Reason: Nausea/Vomiting Sodium Chloride (Saline Flush) 10 ml FLUSH ASDIRECTED PRN PRN Reason: Keep Vein Open - Interaction Infant Disposition, : in Room with Family Interaction: Holding Infant Feeding: Attempted ; Nursed Fair/Poor, Bottle Fed Infant Support Person: Significant Other - Recovery Exam Fundal Tone: Firm Fundal Placement: Midline Lochia Amount: Small Lochia Color: Rubra/Red Perineum Description: Intact, Minimal Bruising/Swelling Bladder Status: Voiding Urinary Elimination: Voided - Exam General: Alert, Oriented, Cooperative GI/Abdominal Exam: Soft, Non-Tender Extremities: Normal Inspection - Problem List & Annotations (1) 38 weeks gestation of SNOMED Code(s): 45425149 Code(s): Z3A.38 - 38 WEEKS GESTATION OF Status: Acute Current Visit: Yes (2) GBS (group B Streptococcus carrier), +RV culture, currently SNOMED Code(s): 3930515822683, 024646542, 1143586071515 Code(s): O99.820 - STREPTOCOCCUS B CARRIER STATE COMPLICATING Status: Acute Current Visit: Yes (3) Insufficient care SNOMED Code(s): 5225155427173 Code(s): O09.30 - SUPRVSN OF PREG W INSUFFICIENT ANTENAT CARE, UNSP TRIMESTER Status: Acute Current Visit: Yes Qualifiers: Trimester: third trimester Qualified Code(s): O09.33 - Supervision of with insufficient care, third trimester (4) Vaginal delivery SNOMED Code(s): 260933480 Code(s): O80 - ENCOUNTER FOR FULL-TERM UNCOMPLICATED DELIVERY Status: Acute Current Visit: Yes - Problem List Review Problem List Initiated/Reviewed/Updated: Yes - My Orders Last 24 Hours: My Active Orders 12/17/19 07:21 Resuscitation Status Routine 12/17/19 08:14 Heart Tones [RC] ASDIRECTED Non Stress Test [RC] PER UNIT ROUTINE 12/17/19 09:00 AMPHET/METH EXT CONF (GCMS) Routine 12/17/19 20:41 Activity as Tolerated [RC] PER UNIT ROUTINE Vital Signs [RC] 03,09,15,21 Acetaminophen [Tylenol] 650 mg PO Q4H PRN Benzocaine/Menthol [Dermoplast Pain Relief [place]] See Dose Instructions TOP ASDIRECTED PRN Docusate Sodium [Colace] 100 mg PO BID PRN Ibuprofen [Motrin] 600 mg PO Q6H PRN witch [place] [Tucks] 1 pad TOP ASDIRECTED PRN Assess Lochia [WOMSER] Per Unit Routine Assess Uterine Involution [WOMSER] Per Unit Routine Breast Pump [WOMSER] Per Unit Routine Heat Therapy [OM.PC] PRN Ice Therapy [OM.PC] Per Unit Routine Perineal Care [OM.PC] Per Unit Routine Peripheral IV Discontinue [OM.PC] Routine Sitz Bath [OM.PC] Per Unit Routine 12/17/19 Dinner Regular Diet [DIET] 12/18/19 07:09 Ready for Discharge [RC] PER UNIT ROUTINE 12/18/19 20:41 Heat Therapy [OM.PC] PRN - Assessment Assessment:: PPD#1 - Plan Plan:: * Routine cares * Pt with some difficulty with latch today. Thinks would work better to pump to start as this is also what she did with older kids. Will contact [facility] about breast pump rental otherwise will send Rx. * Discharge home today * KATIE consult prior to discharge
--- NOTE | 2019-12-18 09:21 | PCM48HPAN ---
Post Anesthesia Note - EVALUATION WITHIN 48HRS OF ANESTHETIC Vital Signs in Normal Range: Yes Patient Participated in Evaluation: Yes Respiratory Function Stable: Yes Airway Patent: Yes Cardiovascular Function Stable: Yes Hydration Status Stable: Yes Pain Control Satisfactory: Yes Nausea and Vomiting Control Satisfactory: Yes Mental Status Recovered: Yes Vital Signs: Last Vital Signs Temp 98.1 F 12/18/19 03:48 Pulse 97 12/18/19 03:48 Resp 14 12/18/19 03:48 BP 124/84 12/18/19 03:48 Pulse Ox 97 12/18/19 03:48
== END 2019-12-18 18:00 | disposition home or self-care (01) | DRG 807 ==
LOC: JD.OB 07:08 → JD.OBCHECK 07:08 → JD.OB 10:10 → OBSVTOIN 19:50 → JD.OB 19:51
PROVIDERS: ADMIT Obstetrics & Gynecology; ATTEND Obstetrics & Gynecology
PROC: 10E0XZZ Delivery of Products of Conception, External Approach (ICD-10-PCS; principal; 2019-12-17)
PROC: 3E0R3BZ Introduction of Anesthetic Agent into Spinal Canal, Percutaneous Approach (ICD-10-PCS; 2019-12-17)
DX: O99.824 Streptococcus B carrier state complicating childbirth (principal); Z37.0 Single live birth; Z3A.38 38 weeks gestation of pregnancy; Z79.899 Other long term (current) drug therapy; O99.334 Smoking (tobacco) complicating childbirth; F17.210 Nicotine dependence, cigarettes, uncomplicated; O77.0 Labor and delivery complicated by meconium in amniotic fluid
CPT/HCPCS: 01967; 36415; 51702; 59025; 59409; 80306; 81001; 85027; 86592; 86850; 86900; 86901; A9270-GY; G0480; J0690; J1200; J2590; J3010; J7120

== ENCOUNTER 2019-12-22 04:43 | Emergency (ER) | payer MEDICAID ==
[2019-12-22] MEDS ORDERED: Acetaminophen 325 MG Tab PO ONE (05:12)
[2019-12-22] MEDS ORDERED: Acetaminophen/HYDROcodone 325-5 MG Tab PO ONE (05:13)
--- NOTE | 2019-12-22 05:17 | EDM.PDOC ---
ED HPI GENERAL MEDICAL PROBLEM - General Chief Complaint: Back Pain or Injury Stated Complaint: BACK PAIN Time Seen by Provider: 12/22/19 05:01 Source of Information: Reports: Patient, RN Notes Reviewed - History of Present Illness INITIAL COMMENTS - FREE TEXT/NARRATIVE: 29 yr old female comes in with back pain. She had onset of the pain 2 days ago. It is much worse this morning. She just delivered a baby 5 days ago without known complication, went home the next day. She has had no voiding sx, abd pain, nausea, vomiting. No fever or chills. No known injury other than lifting her "8lb baby". She has not been coughing, has no chest pain or difficulty breathing. Her back pain is worse with moving, most severe mid back. She did take some "excedrin"yesterday morning. Has not taken anything for pain since than. Lower Back Pain Score (Numeric/FACES): 10 - Related Data Allergies Allergy/AdvReac Type Severity Reaction Status Date / Time amoxicillin Allergy Itching Verified 12/22/19 04:58 Home Meds: Home Meds Pnv #38/Iron Fum/Folate/Dha [Prenate Dha Softgel] 1 each PO DAILY 12/17/19 [ History] Docusate Sodium [Colace] 100 mg PO BID PRN cap 12/18/19 [Rx] Ibuprofen [Motrin] 600 mg PO Q6H PRN tablet 12/18/19 [Rx] Cephalexin [Keflex] 500 mg PO Q8HR #14 capsule 12/22/19 [Rx] Past Medical History [employer] History: Reports: Hematologic History: Reports: Blood Transfusion(s) - Past Surgical History HEENT Surgical History: Reports: Oral Surgery Social & Family History - Family History Family Medical History: Noncontributory - Tobacco Use Smoking Status *Q: Current Every Day Smoker Years of Tobacco use: 12 Packs/Tins Daily: 0.2 - Caffeine Use Caffeine Use: Reports: Coffee - Recreational Drug Use Recreational Drug Use: No ED ROS GENERAL - Review of Systems Review Of Systems: See Below Constitutional: Denies: Fever, Chills HEENT: Reports: No Symptoms Respiratory: Denies: Shortness of Breath Cardiovascular: Denies: Chest Pain GI/Abdominal: Denies: Abdominal Pain, Nausea, Vomiting : Reports: Frequency. Denies: Dysuria Musculoskeletal: Reports: Back Pain. Denies: Leg Pain Skin: Reports: No Symptoms Neurological: Reports: No Symptoms ED EXAM,LOWER BACK PAIN/INJURY - Physical Exam Exam: See Below General Appearance: Alert, Mild Distress Head: Atraumatic Neck: Supple Respiratory/Chest: No Respiratory Distress GI/Abdominal: Non-Tender Back Exam: Paraspinal Tenderness (bilat mid back). No: CVA Tenderness (L), CVA Tenderness (R) Course - Vital Signs Last Recorded V/S: Last Vital Signs Temp 99.1 F 12/22/19 06:12 Pulse 138 H 12/22/19 06:12 Resp 24 H 12/22/19 06:12 BP 158/138 H 12/22/19 06:12 Pulse Ox 99 12/22/19 06:12 - Orders/Labs/Meds Labs: Laboratory Tests 12/22/19 12/22/19 12/22/19 Range/Units 05:20 05:20 05:30 WBC 25.17 H (3.98-10.04) K/mm3 RBC 3.93 L (3.98-5.22) M/mm3 Hgb 10.3 L (11.2-15.7) gm/dl Hct 32.7 L (34.1-44.9) % MCV 83.2 (79.4-94.8) fl MCH 26.2 (25.6-32.2) pg MCHC 31.5 L (32.2-35.5) g/dl RDW Std Deviation 48.9 H (36.4-46.3) fL Plt Count 446 H D (182-369) K/mm3 MPV 10.7 (9.4-12.3) fl Neut % (Auto) 81.8 H (34.0-71.1) % Lymph % (Auto) 11.5 L (19.3-51.7) % [place] % (Auto) 5.5 (4.7-12.5) % Eos % (Auto) 0.7 (0.7-5.8) Baso % (Auto) 0.1 (0.1-1.2) % Neut # (Auto) 20.58 H (1.56-6.13) K/mm3 Lymph # (Auto) 2.89 (1.18-3.74) K/mm3 [place] # (Auto) 1.39 H (0.24-0.36) K/mm3 Eos # (Auto) 0.18 (0.04-0.36) K/mm3 Baso # (Auto) 0.03 (0.01-0.08) K/mm3 Manual Slide Review Abnormal smear Sodium (136-145) mEq/L Potassium (3.5-5.1) mEq/L Chloride (98-107) mEq/L Carbon Dioxide (21-32) mEq/L Anion Gap (5-15) BUN (7-18) mg/dL Creatinine (0.55-1.02) mg/dL Est Cr Clr Drug Dosing mL/min Estimated GFR (MDRD) (>60) mL/min BUN/Creatinine Ratio (14-18) Glucose (74-106) mg/dL Lactic Acid (0.4-2.0) mmol/L Calcium (8.5-10.1) mg/dL Total Bilirubin (0.2-1.0) mg/dL AST (15-37) U/L ALT (14-59) U/L Alkaline Phosphatase (46-116) U/L C-Reactive Protein (<1.0) mg/dL Total Protein (6.4-8.2) g/dl Albumin (3.4-5.0) g/dl Globulin gm/dL Albumin/Globulin Ratio (1-2) Urine Color Yellow (Yellow) Urine Appearance Clear (Clear) Urine pH 6.0 (5.0-8.0) Ur Specific [place] > or = 1.030 (1.005-1.030) Urine Protein 1+ H (Negative) Urine Glucose (UA) Negative (Negative) Urine Ketones 3+ H (Negative) Urine Occult Blood 2+ H (Negative) Urine Nitrite Negative (Negative) Urine Bilirubin Negative (Negative) Urine Urobilinogen 0.2 (0.2-1.0) Ur Leukocyte Esterase Negative (Negative) Urine RBC 5-10 H (0-5) /hpf Urine WBC 0-5 (0-5) /hpf Ur Squamous Epith Cells 0-5 (0-5) /hpf Urine Bacteria Few (FEW) /hpf Urine Mucus Many H (FEW) /hpf Urine Opiates Screen Negative (RJHDRF=752) Ur Buprenorphine Scrn Negative (CUTOFF=10) Ur Oxycodone Screen Negative (BEI1LB=936) Urine Methadone Screen Negative (CIMVOT=319) Ur Propoxyphene Screen Negative (IYPUAQ=016) Ur Barbiturates Screen Negative (RZVCBI=600) Ur Tricyclics Screen Negative (ITHMQJ=962) Ur Phencyclidine Scrn Negative (CUTOFF=25) Ur Amphetamine Screen Presumptive positive H (UZFDDC=761) U Methamphetamines Scrn Presumptive positive H (LRHLSB=150) U Benzodiazepines Scrn Negative (IQHGNH=224) U Cocaine Metab Screen Negative (GXAGHE=121) U Marijuana (THC) Screen Negative (CUTOFF=50) 12/22/19 12/22/19 Range/Units 06:20 06:20 WBC (3.98-10.04) K/mm3 RBC (3.98-5.22) M/mm3 Hgb (11.2-15.7) gm/dl Hct (34.1-44.9) % MCV (79.4-94.8) fl MCH (25.6-32.2) pg MCHC (32.2-35.5) g/dl RDW Std Deviation (36.4-46.3) fL Plt Count (182-369) K/mm3 MPV (9.4-12.3) fl Neut % (Auto) (34.0-71.1) % Lymph % (Auto) (19.3-51.7) % [place] % (Auto) (4.7-12.5) % Eos % (Auto) (0.7-5.8) Baso % (Auto) (0.1-1.2) % Neut # (Auto) (1.56-6.13) K/mm3 Lymph # (Auto) (1.18-3.74) K/mm3 [place] # (Auto) (0.24-0.36) K/mm3 Eos # (Auto) (0.04-0.36) K/mm3 Baso # (Auto) (0.01-0.08) K/mm3 Manual Slide Review Sodium 139 (136-145) mEq/L Potassium 4.0 (3.5-5.1) mEq/L Chloride 102 (98-107) mEq/L Carbon Dioxide 24 (21-32) mEq/L Anion Gap 17.0 H (5-15) BUN 21 H (7-18) mg/dL Creatinine 0.7 (0.55-1.02) mg/dL Est Cr Clr Drug Dosing 93.79 mL/min Estimated GFR (MDRD) > 60 (>60) mL/min BUN/Creatinine Ratio 30.0 H (14-18) Glucose 86 (74-106) mg/dL Lactic Acid 1.3 (0.4-2.0) mmol/L Calcium 8.8 (8.5-10.1) mg/dL Total Bilirubin 1.0 (0.2-1.0) mg/dL AST 74 H (15-37) U/L ALT 78 H (14-59) U/L Alkaline Phosphatase 160 H (46-116) U/L C-Reactive Protein 18.7 H* (<1.0) mg/dL Total Protein 7.8 (6.4-8.2) g/dl Albumin 2.7 L (3.4-5.0) g/dl Globulin 5.1 gm/dL Albumin/Globulin Ratio 0.5 L (1-2) Urine Color (Yellow) Urine Appearance (Clear) Urine pH (5.0-8.0) Ur Specific [place] (1.005-1.030) Urine Protein (Negative) Urine Glucose (UA) (Negative) Urine Ketones (Negative) Urine Occult Blood (Negative) Urine Nitrite (Negative) Urine Bilirubin (Negative) Urine Urobilinogen (0.2-1.0) Ur Leukocyte Esterase (Negative) Urine RBC (0-5) /hpf Urine WBC (0-5) /hpf Ur Squamous Epith Cells (0-5) /hpf Urine Bacteria (FEW) /hpf Urine Mucus (FEW) /hpf Urine Opiates Screen (YESGYK=751) Ur Buprenorphine Scrn (CUTOFF=10) Ur Oxycodone Screen (UHS0NT=722) Urine Methadone Screen (ZPFXAZ=197) Ur Propoxyphene Screen (SSTHST=886) Ur Barbiturates Screen (BPWEAZ=209) Ur Tricyclics Screen (OWUERF=752) Ur Phencyclidine Scrn (CUTOFF=25) Ur Amphetamine Screen (KYLCPQ=292) U Methamphetamines Scrn (ESTUUO=396) U Benzodiazepines Scrn (WZMBEZ=670) U Cocaine Metab Screen (GZHCZU=417) U Marijuana (THC) Screen (CUTOFF=50) Meds: Medications Discontinued Medications Generic Name Dose Route Start Last Admin Trade Name Freq PRN Reason Stop Dose Admin Acetaminophen 650 mg 12/22/19 05:12 04/13/20 05:19 Tylenol PO 12/22/19 05:13 650 mg NOW ONE Administration Hydrocodone Bitart/Acetaminophen 1 tab 12/22/19 05:13 12/22/19 05:19 [place] 325-5 Mg PO 12/22/19 05:14 1 tab ONETIME ONE Administration Ceftriaxone Sodium Confirm 12/22/19 06:40 12/22/19 06:43 Rocephin Administered 12/22/19 06:41 Not Given Dose 2 gm IV .STK-MED ONE Hydromorphone HCl 0.5 mg 12/22/19 06:27 12/22/19 06:31 Dilaudid IVPUSH 12/22/19 06:28 0.5 mg ONETIME ONE Administration Sodium Chloride 1,000 mls @ 999 mls/hr 12/22/19 06:15 12/22/19 06:26 Normal Saline IV 999 mls/hr ONETIME KAYLA Administration Ceftriaxone Sodium 2 gm/ 100 mls @ 200 mls/hr 12/22/19 06:30 12/22/19 06:43 Sodium Chloride IV 12/22/19 06:59 Not Given ONETIME ONE Sodium Chloride Confirm 12/22/19 06:40 12/22/19 06:43 Normal Saline Administered 12/22/19 06:41 Not Given Dose 100 mls @ as directed .ROUTE .STK-MED ONE Ceftriaxone Sodium 2 gm/ 100 mls @ 200 mls/hr 12/22/19 06:41 12/22/19 06:46 Sodium Chloride IV 12/22/19 07:10 200 mls/hr ONETIME STA Administration Sodium Chloride 10 ml 12/22/19 06:15 12/22/19 06:26 Saline Flush FLUSH 10 ml ASDIRECTED PRN Administration Keep Vein Open - Re-Assessments/Exams Free Text/Narrative Re-Assessment/Exam: 12/22/19 06:22 WBC has come back at 25,170. UA nitrate and leukocyte neg., few Bacteria and 0-5 WBC. Had given 1/2 tab hydrocodone, 650 tylenol. She states she is still having severe back pain. Heart rate continues in the 130's to 140. Patient continues to be very hyper, rapid speech, head bobbing, constantly moving, has not been holding still for a decent BP reading. Have ordered urine drug screen, CRP, lactic acid, blood culture times 1. Have ordered 1 liter NS fluid bolus, 2 grams rocephin IV. 12/22/19 07:22. Lactic acid has come back nl, drug screen positive for meth. I am going to discharge her home, Discussed with Dr Chavez, she will see her in close follow up. Discharge instr. as documented. Departure - Departure Time of Disposition: 07:31 Disposition: Home, Self-Care 01 Condition: Fair Clinical Impression: Back pain Qualifiers: Back pain location: thoracic back pain Chronicity: acute Back pain laterality: unspecified Qualified Code(s): M54.6 - Pain in thoracic spine - Discharge Information Prescriptions: Cephalexin [Keflex] 500 mg PO Q8HR #14 capsule Instructions: Acute Back Pain, Adult Referrals: Amairani Flor MD [Primary Care Provider] - Forms: ED Department Discharge Additional Instructions: cephalexin 500 mg 3 times daily. [facility] Blood culture and urine culture has been done. You may take tylenol 1000 mg 2 to 3 times daily for pain, you may take ibuprofen 600 mg (3 200 mg tabs) 2 to 3 times daily in addition if needed. See Dr Chavez at [facility] in 2 to 3 days for recheck, call for appointment. Return to ED for high fever or if symptoms otherwise worsening in any way. Sepsis Event Note - Evaluation Sepsis Screening Result: No Definite Risk - Focused Exam Date Exam was Performed: 12/23/19 Time Exam was Performed: 20:03
[2019-12-22] MEDS ORDERED: Sodium Chloride 0.9% 1,000 ML IV SCH (06:15)
[2019-12-22] MEDS ORDERED: Sodium Chloride 0.9% 10 ML Syringe FLUSH PRN (06:15)
[2019-12-22] MEDS ORDERED: HYDROmorphone 0.5 MG/0.5 ML Syringe IVPUSH ONE (06:27)
[2019-12-22] MEDS ORDERED: cefTRIAXone 2 GM in Sodium Chloride 0.9% 100 ML IV ONE (06:30)
[2019-12-22] MEDS ORDERED: cefTRIAXone 2 GM AdvVial IV ONE (06:40)
[2019-12-22] MEDS ORDERED: Sodium Chloride 0.9% 100 ML ONE (06:40)
[2019-12-22] MEDS ORDERED: cefTRIAXone 2 GM in Sodium Chloride 0.9% 100 ML IV STA (06:41)
== END 2019-12-22 07:56 | disposition home or self-care (01) ==
LOC: JD.ED 04:43
DX: M54.6 Pain in thoracic spine (principal); F17.210 Nicotine dependence, cigarettes, uncomplicated; Z88.1 Allergy status to other antibiotic agents
CPT/HCPCS: 36415; 80053; 80306; 81001; 83605; 85025; 86140; 87040; 87086; 96361; 96374; 99283-25; 99284; A9270-GY; J0696; J1170; J7030; J7050